=== PATIENT | male | born 1980 | race Caucasian/White ===

== ENCOUNTER 2021-06-10 09:00 | Outpatient (CLI) | payer BC | END 2021-06-10 09:30 | disposition home or self-care (01) | LOC: PPH VACUNA 09:00 | PROVIDERS: ATTEND Emergency Medicine Pediatric Emergency Medicine | DX: Z23 Encounter for immunization (principal) ==

== ENCOUNTER 2021-11-10 16:12 | Outpatient (CLI) | payer BC | END 2021-11-10 16:17 | disposition home or self-care (01) | LOC: RAD 16:12 | DX: M79.672 Pain in left foot (principal); M25.532 Pain in left wrist ==